=== PATIENT | female | born 1995 | race Caucasian/White ===

== ENCOUNTER 2021-05-09 15:09 | Emergency (ER) | payer OTHER ==
[~2021-05-09] VITALS: Ht 165.1 cm; Wt 75.7 kg
[2021-05-09 17:38] LABS: BASO % 0.4 % (0.0-1.0); EOS # 0.1 10^3/uL (0.0-0.5); EOS % 0.7 % (0.0-3.0); HEMATOCRIT 37.6 % (36.0-47.0); MEAN CORPUSCULAR HEMOGLOBIN 32.5 pg (27.0-33.0); MEAN CORPUSCULAR HGB CONC 34.6 g/dl (32.0-36.5); MONO # 0.5 10^3/uL (0.0-0.8); MONO % 5.2 % (2.0-8.0); NEUTROPHILS # 6.9 10^3/uL (1.5-8.5); NEUTROPHILS % 72.3 % (36.0-66.0); PLATELET COUNT, AUTOMATED 278 10^3/uL (150-450); WHITE BLOOD COUNT 9.6 10^3/uL (4.0-10.0)
[2021-05-09 18:24] LABS: BLOOD UREA NITROGEN 5 MG/DL (7-18); CALCIUM LEVEL 9.1 MG/DL (8.5-10.1); CARBON DIOXIDE LEVEL 23 MEQ/L (21-32); CHLORIDE LEVEL 107 MEQ/L (98-107); GLOMERULAR FILTRATION RATE > 60.0 (>60); GLUCOSE, FASTING 91 MG/DL (70-100); HCG, SERUM QUANTITATIVE 117445 MIU/ML; SODIUM LEVEL 138 MEQ/L (136-145)
--- NOTE | 2021-05-09 19:54 | REP ---
INDICATION: vag bleeding, 7-9 wks preg. COMPARISON: None. TECHNIQUE: A transabdominal imaging with color and Doppler interrogation of the adnexa and uterus. FINDINGS: On this transabdominal examination uterus is seen anteverted. There is a gestational sac in the body and fundus which has a pole. The pole has a crown-rump length of 2.6 cm which corresponds to 9 weeks 2 days. heart activity noted at 174 bpm. There is no subchorionic bleed. A yolk sac is visible. The right ovary is 2.9 x 2.1 x 3.5 cm. It shows normal color flow and Doppler tracing shows resistive index of 0.56, normal. No adjacent free fluid. The left ovary measures 2.4 x 3.4 x 2.8 cm. It also has normal color flow and Doppler tracing with resistive index 0.61, normal. A hypoechoic 1.4 x 1.2 x 1.4 cm presumed corpus luteum cyst is noted on the left. It has no internal echoes or color flow. There is no pelvic free fluid or fluid in the cul-de-sac. IMPRESSION: Single intrauterine gestation with crown-rump length consistent with 9 weeks 2 days which would give an EDC 12/10/2021. By LMP EDC is 12/16/2021. Yolk sac was identified, heart rate 174. No adnexal mass or pelvic free fluid. There is a corpus luteum cyst on the left 1.4 x 1.4 cm. <Electronically signed by Marc Nicholson > 05/09/21 [id number]
[2021-05-09 20:25] VITALS: BP 121/64
== END 2021-05-09 20:27 | disposition home or self-care (01) ==
LOC: M ED 15:09
DX: O46.91 Antepartum hemorrhage, unspecified, first trimester (principal); Z3A.09 9 weeks gestation of pregnancy; O34.81 Maternal care for other abnormalities of pelvic organs, first trimester

== ENCOUNTER → 2021-05-23 | Outpatient (CLI) | payer OTHER ==
[2021-05-23 10:34] LABS: HEMATOCRIT 39.6 % (36.0-47.0); HEMOGLOBIN 13.3 g/dl (12.0-15.5); MEAN CORPUSCULAR HEMOGLOBIN 32.1 pg (27.0-33.0); MEAN CORPUSCULAR HGB CONC 33.6 g/dl (32.0-36.5); MEAN CORPUSCULAR VOLUME 95.7 fl (80.0-96.0); PLATELET COUNT, AUTOMATED 282 10^3/uL (150-450); RED BLOOD COUNT 4.14 10^6/uL (4.00-5.40); WHITE BLOOD COUNT 9.9 10^3/uL (4.0-10.0)
[2021-05-23 11:55] LABS: HEPATITIS B SURFACE ANTIGEN NEGATIVE (NEGATIVE); HEPATITIS C VIRUS ABY INDEX 0.1 INDEX (<0.8); HIV 1&2 SCREEN CENTAUR NEGATIVE (NEGATIVE)
[2021-05-23 13:10] LABS: GC DNA AMPLIFICATION NEGATIVE (NEGATIVE)
== END ==
LOC: M LAB 09:45
PROVIDERS: ATTEND Specialist
DX: Z34.01 Encounter for supervision of normal first pregnancy, first trimester (principal)

== ENCOUNTER → 2021-08-03 | Outpatient (CLI) | payer OTHER ==
--- NOTE | 2021-08-03 11:22 | REP ---
INDICATION: ANATOMY COMPARISON: None. TECHNIQUE: Transabdominal obstetrical ultrasound with color Doppler evaluation. FINDINGS: Examination demonstrates a single live intrauterine in transverse presentation. motion is identified by technologist. Placenta is noted anterior and grade 1 without evidence for placenta previa or abruption. Amniotic fluid volume is normal. Cervix measures 4.8 cm in length and appears closed.. Selected gestational age: 20 weeks 5 days with RENEE 12/16/2021. Gestational age by current measurements 20 weeks 4 days with RENEE 12/17/2021. FHR equals 142 beats per minute. Estimated weight 375 grams (48thpercentile). Anatomical assessment demonstrates normal structures including cranium, choroid plexus, cavum, cerebellum/posterior fossa, facial features, lungs, four-chamber heart, diaphragm, stomach, cord insertion/three-vessel cord, kidneys/bladder, and extremities. Limited evaluation of the cardiac ventricular outflow tracts and spine due to positioning. IMPRESSION: Single live intrauterine in transverse lie demonstrating appropriate estimated weight and growth. Anatomical limitations as noted above may warrant re-evaluation and follow-up. <Electronically signed by Gerardo Art > 08/03/21 [id number]
== END ==
LOC: M WHC 09:00
PROVIDERS: ATTEND Obstetrics & Gynecology
DX: Z34.02 Encounter for supervision of normal first pregnancy, second trimester (principal); Z3A.20 20 weeks gestation of pregnancy

== ENCOUNTER → 2021-08-24 | Outpatient (CLI) | payer OTHER ==
--- NOTE | 2021-08-24 14:47 | REP ---
INDICATION: 21 WEEKS GESTATION OF , COMPLETION OF ANATOMY SCREEN. COMPARISON: 08/03/2021 TECHNIQUE: Limited 2nd trimester OB ultrasound incomplete anatomic screen due to obscured anatomy. FINDINGS: Scanning demonstrates a viable single intrauterine gestation in a transverse lie. motion is observed and heart rate is recorded at 128 beats per minute. An anterior, grade 1 placenta is seen without evidence of previa. Three-vessel cord with mid cord insertion. Amniotic fluid is subjectively normal. Closed cervical length is measured at 4.5 cm transabdominally. No extrauterine abnormality is observed. There has been appropriate interval growth. No anomaly is seen. The following anatomic structures are identified to complete the anatomic screen: Cardiac rate and rhythm, four-chamber view, left and right ventricular outflow tracks and the spine were seen and unremarkable. Biometry chart: BPD 5.8 cm; 23 weeks 5 days Head circumference 21.6 cm; 23 weeks 5 days Abdominal circumference 18.2 cm; 23 weeks 3 days Femur length 4.3 cm; 24 weeks 0 days Humeral length 3.9 cm; 23 weeks 6 days HC/AC ratio normal 1.16 Cephalic index normal 0.74 Estimated weight 618 grams, 1 pounds 5 ounces, 40th percentile for 23 weeks 5 days. IMPRESSION: Viable single intrauterine gestation at 23 weeks 5 days by today's composite sonographic criteria. Expected gestational age estimate based on prior sonography is 23 weeks is 5 days. RENEE by prior sonography 12/16/2021. anatomy screen now complete. No anomaly. <Electronically signed by Marc Nicholson > 08/24/21 [id number]
== END ==
LOC: M WHC 11:13
PROVIDERS: ATTEND Advanced Practice Midwife
DX: Z36.9 Encounter for antenatal screening, unspecified (principal); Z3A.23 23 weeks gestation of pregnancy